=== PATIENT | male | born 1940 | race Caucasian/White ===

== ENCOUNTER 2022-09-29 08:43 | Outpatient (CLI) | payer MEDICARE, BC, SELFPAY ==
[2022-09-29 15:22] LABS: Glucose* 104 mg/dL (60-115)
== END 2022-09-29 08:44 | disposition home or self-care (01) ==
PROVIDERS: PCP Internal Medicine; Visit Provider Internal Medicine
DX: E78.5 Hyperlipidemia, unspecified (principal); R63.1 Polydipsia
CPT/HCPCS: 82947

== ENCOUNTER 2023-05-22 10:03 | Emergency (ER) | payer MEDICARE, BC, SELFPAY ==
[2023-05-22 10:11] VITALS: BP 150/105; PULSE 50; RESP 18; TEMP 35.6; O2SAT 99; BMI 26.6
[2023-05-22 10:27] VITALS: BP 186/92; PULSE 49; RESP 18; O2SAT 99
--- NOTE | 2023-05-22 11:01 | ED_ITS ---
HPI - Eye Problem General Chief complaint: Eye Problems Stated complaint: RT eye, bloody Time Seen by Provider: 05/22/23 10:48 History of Present Illness HPI Narrative: This 83-year-old male states that he sneezed yesterday and soon thereafter developed redness in the medial aspect of his right eye. He is taking blood pressure medicine and anticoagulants. He states that his INR was last checked at 2.5. He also generally takes a baby aspirin but did not take this medicine this morning. He noted his blood pressure had a systolic value of 190 yesterday so he recheck did over night and states that it is normalized at 130 today. He does not complain of any pain or visual changes. Related Data Home Medications Medication Instructions Recorded Confirmed aspirin 81 mg chewable tablet 81 mg PO QDAY 05/11/22 02/06/23 sildenafil 100 mg tablet 100 mg PO QDAY PRN 05/11/22 02/06/23 Previous Rx's Medication Instructions Recorded hydrochlorothiazide 12.5 mg capsule 12.5 mg PO QDAY #90 caps 02/06/23 metoprolol succinate 50 mg 50 mg PO QDAY #90 tabs 02/06/23 tablet,extended release 24 hr nitroglycerin 0.4 mg sublingual 0.4 mg sublingual Q5M PRN chest 02/06/23 tablet pain #30 tabs omeprazole 20 mg capsule,delayed 20 mg PO QDAY #90 caps 02/06/23 release simvastatin 10 mg tablet 10 mg PO .QOD #45 tabs 02/06/23 amiodarone 200 mg tablet 200 mg PO QDAY #90 tabs 02/07/23 ezetimibe 10 mg tablet 10 mg PO QDAY #90 tabs 02/07/23 warfarin 1 mg tablet 2 mg PO DAILY #180 tabs 04/27/23 valsartan 160 mg tablet 160 mg PO .QHS #90 tabs 05/01/23 Allergies Allergy/AdvReac Type Severity Reaction Status Date / Time atorvastatin Allergy Mild Muscle Pain Verified 02/06/23 07:43 rosuvastatin Allergy Mild myalgias Verified 02/06/23 07:43 Review of Systems Status of ROS: Reports: 10 or more systems reviewed and unremarkable except as noted in History and below Narrative: Constitutional: No fevers, no weight gain or loss. Eyes: No discharge. No vision changes. HENT: No congestion, no sore throat, no ear pain. Cardiovascular: No chest pain, no palpitations. Respiratory: No shortness of breath, no wheezes, no cough. Gastrointestinal: No abdominal pain, no vomiting, no diarrhea. Genitourinary: No dysuria, no hematuria. Musculoskeletal: Normal range of motion. Skin: No rashes, no pruritis. Neurological: No dizziness, weakness, sensory change, speech change. Endo/Heme/Allergies: No bruising or bleeding. No polydipsia. Pysch: no suicidality, no anxiety, no insomnia. All other systems reviewed and are negative. [facility] Medical History (Updated 05/22/23 @ 11:05 by Rodolfo Rodriguez MD) History of cardioversion ?Z92.89 - Personal history of other medical treatment (ICD-10) Surgical History (Updated 09/29/22 @ 11:57 by Marycruz Avilez MD) History of uvulopalatopharyngoplasty ?Z98.890 - Other specified postprocedural states (ICD-10) History of tonsillectomy ?Z90.89 - Acquired absence of other organs (ICD-10) History of mitral valve repair ?Z98.890 - Other specified postprocedural states (ICD-10) History of malignant neoplasm of skin ?Z85.828 - Personal history of other malignant neoplasm of skin (ICD-10) History of coronary artery bypass surgery ?Z95.1 - Presence of aortocoronary bypass graft (ICD-10) History of cataract removal with insertion of prosthetic lens ?Z98.49 - Cataract extraction status, unspecified eye (ICD-10) ?Z96.1 - Presence of intraocular lens (ICD-10) Family History (Updated 09/21/22 @ 14:08 by Pat Owusu ~ PSR) Other Heart disease Prostate cancer Stroke Social History (Updated 09/21/22 @ 14:08 by Pat Owusu ~ PSR) Narrative: Former smoker Occasional alcohol consumption Does not use illicit drugs Smoking Status: Never smoker Do you use any of these nicotine containing products: None How often do you have a drink containing alcohol: 2-3 times a week How many standard drinks containing alcohol do you have on a typical day: 1 or 2 How often do you have six or more drinks on one occasion: Never AUDIT-C Alcohol total score: 3 Non-prescribed substance use: denies use Little interest or pleasure in doing things: not at all Feeling down, depressed, or hopeless: not at all service: No Exam Narrative: Exam Narrative: Constitutional: Well-developed, well-nourished, no acute distress. HEENT: Normocephalic, atraumatic. The medial aspect of the right eye has a subconjunctival hematoma. Funduscopic exam is normal bilaterally without any evidence of blood. Neck: Normal range of motion. Nontender. Supple. Heart: Regular. No murmurs. Normal rate. Intact distal pulses. Lungs: Clear to auscultation. No chest discomfort. No wheezes, rhonchi, or rales. Abdomen: Normal bowel sounds. Nontender. No rebound tenderness. Genitalia: Deferred. Back: No midline tenderness. Normal range of motion. Extremities: Normal range of motion. No injury. Skin: Intact. No rash. Warm. No erythema or pallor. Neurologic: No altered sensation. No weakness. Alert and oriented. Psychiatric: No suicidality. No anxiety or depression. No insomnia. Nursing notes and vitals signs are reviewed. Const: Vital Signs, click to edit/add: Vital Signs - 24 hr 05/22/23 10:11 05/22/23 10:27 Temperature 96.1 F L Pulse Rate [Pulse Oximeter] 50 L 49 L Respiratory Rate 18 18 Blood Pressure [Le ft Upper Arm] 150/105 H 186/92 H Pulse Oximetry 99 99 Oxygen Delivery Me thod Room Air Room Air Course Vital Signs Vital signs: Initial Vital Signs Temperature 96.1 F L 05/22/23 10:11 Temperature Source Temporal Artery Scan 05/22/23 10:11 Pulse Rate 50 L 05/22/23 10:11 Pulse Rhythm Regular 05/22/23 10:11 Respiratory Rate 18 05/22/23 10:11 Blood Pressure 150/105 H 05/22/23 10:11 Blood Pressure Mean 120 H 05/22/23 10:11 Blood Pressure Position Sitting 05/22/23 10:11 Pulse Oximetry 99 05/22/23 10:11 Oxygen Delivery Method Room Air 05/22/23 10:11 Vital Signs Temperature 96.1 F L 05/22/23 10:11 Pulse Rate 50 L 05/22/23 10:11 Respiratory Rate 18 05/22/23 10:11 Blood Pressure 150/105 H 05/22/23 10:11 Pulse Oximetry 99 05/22/23 10:11 Oxygen Delivery Method Room Air 05/22/23 10:11 Temperature 96.1 F L 05/22/23 10:11 Pulse Rate 49 L 05/22/23 10:27 Respiratory Rate 18 05/22/23 10:27 Blood Pressure 186/92 H 05/22/23 10:27 Pulse Oximetry 99 05/22/23 10:27 Oxygen Delivery Method Room Air 05/22/23 10:27 MDM - Eye Problem MDM Narrative Medical decision making narrative: This patient comes in with concern about redness in his right eye. He is on anticoagulants and states that he had a quadruple bypass about a year ago. He is also on antihypertensive medications and has had some spikes in his blood pressure recently but also returns to normal. I reassured him regarding the subconjunctival hematoma in his right eye and stated that this will resolve spontaneously. His anticoagulant and blood pressure have likely contributed to this hematoma. He should continue his current medications. He has a follow-up appointment with his cloth doffer in the next few weeks. Discharge Plan Discharge Clinical Impression: Subconjunctival hematoma Condition: Stable Additional Instructions: Continue current plans. Follow up with MD as scheduled. Return if worsening. Prescriptions: No Action simvastatin 10 mg tablet 10 mg PO .QOD Qty: 45 3RF Rx Instructions: Every other day omeprazole 20 mg capsule,delayed release(DR/EC) 20 mg PO QDAY Qty: 90 3RF metoprolol succinate 50 mg tablet extended release 24 hr 50 mg PO QDAY Qty: 90 3RF hydrochlorothiazide 12.5 mg capsule 12.5 mg PO QDAY Qty: 90 3RF nitroglycerin 0.4 mg tablet, sublingual 0.4 mg sublingual Q5M PRN (Reason: chest pain) Qty: 30 5RF Rx Instructions: do not exceed 3 doses per episode sildenafil 100 mg tablet 100 mg PO QDAY PRN Rx Instructions: administer 30 minutes to 4 hours before activity aspirin 81 mg tablet,chewable 81 mg PO QDAY amiodarone 200 mg tablet 200 mg PO QDAY Qty: 90 1RF ezetimibe 10 mg tablet 10 mg PO QDAY Qty: 90 3RF warfarin 1 mg tablet 2 mg PO DAILY Qty: 180 0RF Protocol: Dose Management Condition: Monday Dose/Route: 2 mg Instruction: 2 x 1 mg tablets Condition: Monday Dose/Route: 2 mg Instruction: 2 x 1 mg tablets Condition: Monday Dose/Route: 2 mg Instruction: 2 x 1 mg tablets Condition: Monday Dose/Route: 1 mg Instruction: 1 x 1 mg tablet Condition: Dose/Route: 2 mg Instruction: 2 x 1 mg tablets Condition: Monday Dose/Route: 2 mg Instruction: 2 x 1 mg tablets Condition: Monday Dose/Route: 2 mg Instruction: 2 x 1 mg tablets Protocol Text: Adjustment Start Date: Monday05/10/23 INR Value: 2.8 INR Date: 05/10/23 Recheck Date: 05/24/23 valsartan 160 mg tablet 160 mg PO .QHS Qty: 90 0RF Follow Up/Referrals: Marycruz Avilez MD [Primary Care Provider] - Stand Alone Forms: MyHealth Info Instructions
--- OUTSIDE RECORDS SUMMARY | 2023-05-22 11:03 | XMS_ITS | Continuity of Care Document ---
Author Name Unknown Organization [facility] Address [address] [place] [address] [address] [place] [address] Phone Care Team Providers Care Lens Grinder And Polisher Name Role Phone Claudine FLORENCE, Kristina Unavailable Unavailable Procedures Procedure Date Office consultation, moderate 7 Advance Directives Directive Yes / No Effective Date File Name No Information Encounters Encounter Description Practice Location Reason(s) For Visit Diagnoses Date Provider Providers Copied on Encounter Office consultation, moderate [facility] [place], [facility] [address] [place] [address], [place], [address], [place] tel:[phone] [facility] No Information Claudine Acevedo. [facility] [place], [address], [place], [id number] , [place]. tel:[phone] Referring Provider: Kristina Chow, [facility] [place] [id number], [place], [address] . tel:[phone] Family History Family Member Type Diagnosis Age At Onset No Information Payers Payer name Insurance type Covered republican ID Authorrandya ticolleen(s) [place] [id number] Social History Type Description Quantity Date Captured Comments Sex Male Smoking Status No Information Chief Complaint And Reason For Visit No Information Reason For Referral Reason For Referral No Information History Of Present Illness Encounter Date Complaint History Of Prese nt Illness No Information Functional Status Date Functional Assessmen t No Information Instructions Date Instruction Additional Infor mation No Information Assessments Type Assessment Date No Information Patient Care Teams Name Effective Dates (start - stop) Status Members No Information
== END 2023-05-22 12:23 | disposition home or self-care (01) ==
PROVIDERS: Emergency Provider Emergency Medicine Emergency Medical Services; PCP Internal Medicine
DX: H57.89 Other specified disorders of eye and adnexa (principal)
CPT/HCPCS: 99282; 99283; 99284

== ENCOUNTER 2023-06-27 10:55 | Outpatient (CLI) | payer MEDICARE, BC, SELFPAY ==
--- OUTSIDE RECORDS SUMMARY | 2023-06-27 10:57 | XMS_ITS | Continuity of Care Document ---
Author Name Unknown Organization [facility] Address [address] [place] [address] [address] [place] [address] Phone Care Team Providers Care Furniture Upholsterer Apprentice Name Role Phone Claudine FLORENCE, Kristina Unavailable Unavailable Procedures Procedure Date Office consultation, moderate 7 Advance Directives Directive Yes / No Effective Date File Name No Information Encounters Encounter Description Practice Location Reason(s) For Visit Diagnoses Date Provider Providers Copied on Encounter Office consultation, moderate Z [facility] [place], [facility] [address] [place] [address], [place], [address], [place] tel:[phone] [facility] No Information Claudine Acevedo. [facility] [place], [address], [place], [id number] , [place]. tel:[phone] Referring Provider: Kristina Chow, [facility] [place] [address], [address] . tel:[phone] Family History Family Member Type Diagnosis Age At Onset No Information Payers Payer name Insurance type Covered republican ID Authorrandya ticolleen(s) [place] [facility] [id number] Social History Type Description Quantity Date Captured [...]
== END 2023-06-27 10:56 | disposition home or self-care (01) ==
LOC: NFLDREF 10:56
PROVIDERS: PCP Internal Medicine; Visit Provider Internal Medicine
DX: I10 Essential (primary) hypertension (principal)
CPT/HCPCS: 80048

== ENCOUNTER 2024-02-09 10:42 | Outpatient (CLI) | payer MEDICARE, BC, SELFPAY ==
--- OUTSIDE RECORDS SUMMARY | 2024-02-29 07:42 | XMS_ITS | Referral Summary ---
Author Organization [place] Address [address] [place] [address] Care Team Providers Care Stretcher Leveler Operator Helper Name Role Phone No Ref-Primary, Physician Primary Care Provider Allergies No known active allergies Social History Tobacco Use Types Packs/Day Years Used Date Smoking Tobacco: Never Assessed Adolescent Education Answer Date Record ed Getting School Help Needed Not on file 06/24 Sex and Gender Information Value Date Recorded Sex Assigned at Not on file Gender Identity Not on file Sexual Orientation Not on file Last Filed Vital Signs Vital Sign Reading Time Taken Comments Blood Pressure 159/78 03/03/2023 2:11 AM CDT Pulse 50 03/03/2023 2:11 AM CDT Temperature 36.6 ??C (97.8 ??F) 03/02/2023 9:50 PM CD T Respiratory Rate 18 03/03/2023 2:11 AM CDT Oxygen Saturation 97% 03/03/2023 2:11 AM CDT Inhaled Oxygen Concentration - - Weight - - Height - - Body Mass Index - - Plan of Treatment Not on file Care Teams Stretcher Leveler Operator Helper Relationship Specialty Start Date End Date No Ref-Primary, Physician PCP - General 11/21/21
--- OUTSIDE RECORDS SUMMARY | 2024-02-29 07:42 | XMS_ITS | Clinical Summary ---
Author Organization [facility] Address [address] [place] [address] Care Team Providers Care Court Stenographer Name Role Phone No Ref-Primary, Physician Primary [...] Mass Index - - Plan of Treatment Health Maintenance Due Date Last Done Comments ADVANCE CARE PLANNING 1941 ANNUAL REVIEW OF HM ORDERS 1941 RSV VACCINE ( & 60+) (1 - 1-dose 60+ series) 2001 FALL RISK ASSESSMENT 2006 MEDICARE ANNUAL WELLNESS VISIT 2006 COVID-19 Vaccine ( season) 2023 06/29/2021, 11/18/2020, 11/15/2020, Additional history exists PHQ-2 (once per calendar year) 2023 INFLUENZA VACCINE (Season Ended) 2024 07/07/2021, 07/21/2020, 06/28/2019, Additional history exists DTAP/TDAP/TD IMMUNIZATION (2 - Td or Tdap) 03/20/2025 03/20/2015 Pneumococcal Vaccine: 65+ Years Completed 05/22/2017, 07/25/2014 ZOSTER IMMUNIZATION Completed 09/12/2019, 07/03/2019, 06/28/2019 HPV IMMUNIZATION Aged Out No longer e ligible based on patient's age to complete this topic IPV IMMUNIZATION Aged Out No longer e ligible based on patient's age to complete this topic MENINGITIS IMMUNIZATION Aged Out No l onger eligible based on patient's age to complete this topic RSV MONOCLONAL ANTIBODY Aged Out No l onger eligible based on patient's age to complete this topic Care Teams Court Stenographer Relationship Specialty Start Date End Date No Ref-Primary, Physician PCP - General 11/21/21
--- OUTSIDE RECORDS SUMMARY | 2024-02-29 07:42 | XMS_ITS | Clinical Summary ---
Author Organization [employer] [facility] Address [place], [place] [address] Care Team Providers Care Montessori Teacher Name Role Phone Marycruz Avilez MD Primary Care Provider [phone] Allergies No known active allergies Medications Medication Sig Dispensed Refills Start Date End Date Status OMEPRAZOLE 20 MG CAP, DELAYED RELEASE Take 20 mg by mouth once daily before a meal. DO NOT CRUSH OR CHEW 10/18/2021 Active multivitamin (MVI) tablet Take 1 tablet by mouth once daily. 0 05/13/2016 Active Vit C-Vit J-Fffilu-Itb-OM-3 (OCUVITE) 302-07-0-150 pj-odyu-ci-mg capsule Take by mouth. 0 05/13/2016 Active sodium chloride (ADSORBONAC) 5 % ophthalmic solution Place 1 Drop into both eyes 2 times daily. Active ezetimibe (ZETIA) 10 mg tabletIndications:Hy perlipidemia, unspecified hyperlipidemia type Take 1 Tablet (10 mg) by mouth once daily. 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 20 Tablet 3 09/13/2021 Active simvastatin (ZOCOR) 10 mg tablet Take 10 mg by mouth. Takes every other day 0 09/16/2021 Active valsartan (DIOVAN) 160 mg tablet Take 160 mg by mouth once daily. 01/27/2022 Active warfarin (COUMADIN) 2 mg tabletIndications:S/ P CABG x 4,S/P mitral valve repair,S/P Maze operation for atrial fibrillation,S/P left atrial appendage ligation 3mg once daily with repeat INR on Monday02/18/2022 60 Tablet 3 02/14/2022 Active Additional Information Patient taking differently: Oral DAILY WARFARIN, 2 once daily except on wednesdays take 1 mg with repeat INR on Monday02/18/2022, Informant: Patient's Recall, Reported on 09/11/2023 amiodarone (CORDARONE) 200 mg tablet Take 1 Tablet (200 mg) by mouth once daily. 0 Active metoprolol succinate (Toprol XL) 25 mg Sustained-Release tabletIndications:Pe rsistent atrial fibrillation (HC),Tricuspid valve insufficiency, unspecified etiology Take 1 Tablet (25 mg) by mouth once daily. 90 Tablet 3 03/31/2023 Active hydroCHLOROthiazide (HCTZ) 25 mg tabletIndications:Pe rsistent atrial fibrillation (HC),Tricuspid valve insufficiency, unspecified etiology,Hypertensio n Take 0.5 Tablets (12.5 mg) by mouth once daily. 45 Tablet 06/22/2023 Active aspirin (ECOTRIN) 81 mg enteric coated tabletIndications:Ar teriosclerotic heart disease Take 1 Tablet (81 mg) by mouth once daily with a meal. Please hold for 5 days after your pacemaker placement. Ok to resume taking on 09/16/2023. 09/11/2023 Active oxyCODONE-acetaminop hen (PERCOCET) 5-325 mg per tabletIndications:S/ P placement of cardiac pacemaker Take 1 Tablet by mouth every 6 hours if needed for Pain. Max acetaminophen dose: 4000mg in 24 hrs. 5 Tablet 09/11/2023 Active cloNIDine HCL (CATAPRES) 0.1 mg tabletIndications:Hy pertension Take 1 Tablet (0.1 mg) by mouth one time if needed for SBP > (Specify) (For systolic blood pressure > 160) for up to 30 doses. 30 Tablet 09/11/2023 Active Active Problems Problem Noted Date Diagnosed Date Tricuspid valve insufficiency 02/08/2022 COVID-19 02/08/2022 CKD (chronic kidney disease) stage 3, GFR 30-59 ml/min 10/13/2021 S/P CABG x 4 10/08/2021 S/P mitral valve repair 10/08/2021 Overview: [employer] [facility] Rigid Saddle Ring size 34 mm, REF: [id number], SN: [id number], EXP: 08-01-2026 implanted in the mitral annulus by Dr. 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 Mitral valve insufficiency and aortic valve sten osis 03/06/2007 Resolved Problems Problem Noted Date Diagnosed Date Resolved Date Cardiovascular symptoms 08/26 Encounters Date Type Department Care Team Description 01/17/2024 Travel 12/20/2023 Telephone JumpChat [facility] [address] [facility] [address] [place] [address] Cardiology, Anw Follow Up from Last 3 Months Immunizations Name Administration Dates Next Due COVID-19 vaccine (Mirabilis MedicaNTGetQuik 30mcg/0.3mL) P F, MDV 11/18/2020,10/28/2020 Pneumococcal conj 13-Valent (Prevnar 13) 014 Tdap 03/20/2015 Family History Medical History Relation Name Comments Stroke Father Heart attack Sister Relation Name Status Comments Father Sister Social History Tobacco Use Types Packs/Day Years Used Date Smoking Tobacco: Former Cigarettes Q uit: 09/25/1993 Smokeless Tobacco: Never Comments:was a social smoker Alcohol Use Standard Drinks/Week Comments Yes 7 (1 standard drink = 0.6 oz pur e alcohol) 1 glass/day Social Connections Answer Date Recorded Frequency of Communication with Friends and Fami ly Not on file 09/15/2021 Financial Resource Strain Answer Date R ecorded Difficulty of Paying Living Expenses Not on file 09/15/2021 Difficulty of Paying Living Expenses Not on file 09/15/2021 Sex and Gender Information Value Date Recorded Sex Assigned at Not on file Gender Identity Not on file Sexual Orientation Not on file Obstetrics History Last Filed Vital Signs Vital Sign Reading Time Taken Comments Blood Pressure 170/90 09/11/2023 3:15 PM DATA STORAGE SPECIALIST Pulse 59 09/11/2023 3:15 PM DATA STORAGE SPECIALIST Temperature 35.9 ??C (96.7 ??F) 09/11/2023 1:41 PM CS T Respiratory Rate 16 09/11/2023 3:15 PM DATA STORAGE SPECIALIST Oxygen Saturation 98% 09/11/2023 3:15 PM DATA STORAGE SPECIALIST Inhaled Oxygen Concentration - - Weight 76 kg (167 lb 8 oz) 09/11/2023 9:47 AM CS T Height 170.2 cm (5' 7) 09/11/2023 9:47 AM DATA STORAGE SPECIALIST Body Mass Index 26.23 09/11/2023 9:47 AM DATA STORAGE SPECIALIST Plan of Treatment Upcoming Encounters Date Type Department Care Team (Late st Contact Info) Description 05/07/2024 Cardiac Device Check Arecont [facility] [phone] Health Maintenance Due Date Last Done Comments Zoster (shingles) series for age 50+ (1 of 2) 1991 Pneumococcal series for age 65+ (2 of 2 - PPSV23 or PCV20) 09/19/2014 07/25/2014 Depression screening for age 12+ 05/13/2017 05/13/20 16 Medicare Wellness for age 65+ 05/14/2017 05/13/2016 COVID-19 vaccine series ( season) 2023 06/29/2021, 11/18/2020, 10/28/2020 Influenza for age 65+ 05/26/2024 BMI (ht and wt on same day) for age 18+ 07/13/2024 07/13/2023, 03/31/2023, 05/05/2022, Additional history exists Tetanus booster 03/20/2025 03/20/2015 Tdap Completed 03/20/2015 Medical Devices Implanted Type Area Card Clothier Device Identifier Shelf Expiration Date Model / Serial / Lot Ring Mitral 34mm Rigid Saddle - [id number] Implanted:Qty: 1 on 10/08/2021 by Sushant Mcgowan MD at [facility] N/A: Mitral Valve [id number] / Advance Directives * Full Code (Latest Code Status on File) Date Activated Date Inactivated Comments 09/11/2023 1:28 PM 09/11/2023 6:19 PM Question Answer Comments Code Status Discussion: Reviewed Preferences * Full Code Date Activated Date Inactivated Comments 02/14/2022 12:04 PM 02/14/2022 3:07 PM Question Answer Comments Code Status Discussion: Reviewed Preferences * Full Code Date Activated Date Inactivated Comments 10/10/2021 9:14 AM 10/16/2021 2:26 PM Question Answer Comments Code Status Discussion: Reviewed Preferences * Full Code Date Activated Date Inactivated Comments 10/08/2021 6:25 AM 10/10/2021 9:14 AM Question Answer Comments Code Status Discussion: Unable to Assess Preferences, Provider to review later * Full Code Date Activated Date Inactivated Comments 09/13/2021 3:01 PM 09/13/2021 9:40 PM Question Answer Comments Code Status Discussion: Reviewed Preferences Care Teams Montessori Teacher Relationship Specialty Start Date End Date Marycruz Avilez MD [address] [place], [place] [id number] PCP - General Internal Medicine 11/18/21
== END 2024-02-09 10:43 | disposition home or self-care (01) ==
LOC: NFLDREF 02-29 07:40
PROVIDERS: PCP Internal Medicine; Referring Provider Internal Medicine; Visit Provider Internal Medicine
DX: I48.0 Paroxysmal atrial fibrillation (principal); R73.03 Prediabetes; D64.9 Anemia, unspecified; E78.5 Hyperlipidemia, unspecified; I10 Essential (primary) hypertension
CPT/HCPCS: 80048; 80061

== ENCOUNTER 2024-05-24 10:19 | Outpatient (CLI) | payer MEDICARE, BC, SELFPAY ==
--- OUTSIDE RECORDS SUMMARY | 2024-05-24 10:23 | XMS_ITS | Referral Summary ---
Author Organization [facility] Address [address] [place] [address] Care Team Providers Care Project Construction Assistant Manager Name Role Phone No Ref-Primary, Physician Primary [...] of Treatment Not on file Care Teams Project Construction Assistant Manager Relationship Specialty Start Date End Date No Ref-Primary, Physician PCP - General 11/21/21
--- OUTSIDE RECORDS SUMMARY | 2024-05-24 10:23 | XMS_ITS | Clinical Summary ---
Author Organization [facility] Address [address] [place] [address] Care Team Providers Care Agricultural Research Director Name Role Phone No Ref-Primary, Physician Primary [...] REVIEW OF HM ORDERS 1941 RSV VACCINE (1 - 1-dose 60+ series) 2001 FALL RISK ASSESSMENT 2006 MEDICARE ANNUAL WELLNESS VISIT 2006 COVID-19 Vaccine ( season) 2023 06/29/2021, 11/18/2020, 11/15/2020, Additional history exists PHQ-2 (once per calendar year) 2023 INFLUENZA VACCINE (#1) 2024 , 07/21/2020, 06/28/2019, Additional history exists DTAP/TDAP/TD IMMUNIZATION [...] age to complete this topic Care Teams Agricultural Research Director Relationship Specialty Start Date End Date No Ref-Primary, Physician PCP - General 11/21/21
--- OUTSIDE RECORDS SUMMARY | 2024-05-24 10:23 | XMS_ITS | Clinical Summary ---
Author Organization [facility] Address [place], [place] [address] Care Team Providers Care Senior Microsoft Consultant Name Role Phone Marycruz Avilez MD Primary Care Provider [phone] Allergies No known active allergies Medications Medication Sig Dispensed Refills Start Date End Date Status multivitamin (MVI) tablet Take 1 tablet by mouth once daily. 0 05/13/2016 Active sodium chloride (ADSORBONAC) 5 % ophthalmic solution Place 1 Drop into both eyes 2 times daily. Active ezetimibe (ZETIA) 10 mg tabletIndications:Hyp erlipidemia, unspecified hyperlipidemia type Take 1 Tablet (10 mg) by mouth once daily. 0 09/03/2021 Active nitroglycerin (NITROSTAT) 0.4 mg sublingual tabletIndications:CAD in [place] artery Place 1 Tablet (0.4 mg) under the tongue every 5 minutes if needed for Chest Pain. 20 Tablet 3 09/13/2021 Active simvastatin (ZOCOR) 10 mg tablet Take 10 mg by mouth. Takes every other day 0 09/16/2021 Active warfarin (COUMADIN) 2 mg tabletIndications:S/P CABG x 4,S/P mitral valve repair,S/P Maze operation for atrial fibrillation,S/P left atrial appendage ligation 3mg once daily with repeat INR on Monday02/18/2022 60 Tablet 3 02/14/2022 Active Additional Information Patient taking differently: Oral DAILY WARFARIN, 2 once daily except on wednesdays take 1 mg with repeat INR on Monday02/18/2022, Informant: Patient's Recall, Reported on 09/11/2023 aspirin (ECOTRIN) 81 mg enteric coated tabletIndications:Art eriosclerotic heart disease Take 1 Tablet (81 mg) by mouth once daily with a meal. Please hold for 5 days after your pacemaker placement. Ok to resume taking on 09/16/2023. 09/11/2023 Active cloNIDine HCL (CATAPRES) 0.1 mg tabletIndications:Hyp ertension Take 1 Tablet (0.1 mg) by mouth one time if needed for SBP > (Specify) (For systolic blood pressure > 160) for up to 30 doses. 30 Tablet 09/11/2023 Active hydroCHLOROthiazide 25 mg tabletIndications:Per sistent atrial fibrillation (HC),Tricuspid valve insufficiency, unspecified etiology,Hypertension Take 1 Tablet (25 mg) by mouth once daily. 03/20/2024 Active metoprolol succinate (Toprol XL) 25 mg Sustained-Release tabletIndications:Per sistent atrial fibrillation (HC),Tricuspid valve insufficiency, unspecified etiology Take 0.5 Tablets (12.5 mg) by mouth once daily. 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 Rigid Saddle Ring size 34 mm, REF: RSAR-34, SN: [id number], EXP: 08-01-2026 implanted in the mitral annulus [...] Encounters Date Type Department Care Team Description 05/01/2024 Telephone [facility] [address] [facility] [address] [place] [phone] Scott Sahu MD Questions 04/29/2024 Telephone [place] [id number] [place] [address] Tanesha Evans NP Results 04/26/2024 9:00 AM CDT Ancillary Procedure [address] [place] [address] 04/26/2024 Travel 03/20/2024 8:00 AM CDT Office Visit [place] [address] [place] [address] Tanesha Evans NP Follow Up (F/u Visit/Concerns for possible valve infection/PT states feeling ok./Discuss pacemaker irregular beats./Unable to verify some meds) 03/20/2024 Travel 03/19/2024 Telephone [facility] [address] [facility] [address] [place] [phone] Amilcar Hawkins MD Concerns 03/18/2024 Telephone [facility] [address] [phone] Iraj Lopez RN 03/18/2024 Telephone [facility] [address] [place] [address] [place] [phone] Bernadette Ford I, RN Device Check from Last 3 Months Immunizations Name Administration Dates Next Due COVID-19 vaccine (Bucky Box 30mcg/0.3mL) PAWEL Cardenas 11/18/2020,10/28/2020 Pneumococcal conj 13-Valent (Prevnar 13) 014 Tdap 03/20/2015 Family History Medical History Relation Name Comments Stroke Father Heart attack Sister Relation Name Status Comments Father Sister Social History Tobacco Use Types Packs/Day Years Used Date Smoking Tobacco: Former Cigarettes Q uit: 09/25/1993 Smokeless Tobacco: Never Tobacco Cessation:Counseling Given: Not Answered Comments:was a social smoker Alcohol Use Standard Drinks/Week Comments Yes 7 (1 standard drink = 0.6 oz pur e alcohol) 1 glass/day or less Social Connections Answer Date Recorded Frequency of [...] Sign Reading Time Taken Comments Blood Pressure 136/86 03/20/2024 8:17 AM CDT Pulse 62 03/20/2024 8:17 AM CDT Temperature 35.9 ??C (96.7 ??F) 09/11/2023 1:41 PM CS T Respiratory Rate 16 09/11/2023 3:15 PM HOT METAL CHARGER Oxygen Saturation 97% 03/20/2024 8:17 AM CDT Inhaled Oxygen Concentration - - Weight 77.7 kg (171 lb 3.2 oz) 03/20/2024 8:17 A M CDT Height 170.2 cm (5' 7) 03/20/2024 8:17 AM CDT Body Mass Index 26.81 03/20/2024 8:17 AM CDT Plan of Treatment Upcoming Encounters Date Type Department Care Team (Latest Contact Info) Description 06/19/2024 10:30 AM CDT Appointment [facility] [address] [place], [place] [id number] 09/06/2024 Cardiac Device Check [facility] [phone] Health Maintenance Due Date Last Done Comments [...] wt on same day) for age 18+ 03/20/2025 03/20/2024, 07/13/2023, 03/31/2023, Additional history exists Tetanus booster 03/20/2025 03/20/2015 Tdap Completed 03/20/2015 Medical Devices Implanted Type Area Explosives Worker Device Identifier Shelf Expiration Date Model / Serial / Lot Ring Mitral 34mm Rigid Saddle - [id number] Implanted:Qty: 1 on 10/08/2021 by Sushant Mcgowan MD at [facility] N/A: Mitral Valve [facility] [facility] 08/01/2026 RSAR-34 / [id number] / Procedures Procedure Name Priority Date/Time Associated Diagnosis Comments ECHO TTE COMPLETE WO CONTRAST Routine 04/26/2024 9:46 AM CDT Mitral valve insufficiency and aortic valve stenosis from Last 3 Months Results * ECHO TTE COMPLETE WO CONTRAST (04/26/2024 9:46 AM CDT) AORTIC VALVE MEAN PG 2 mmHg PEAK TR VELOCITY 3.0 m/s LVEDD 4.0 cm MITRAL VALVE MR ERO 26 mm2 EJECTION FRACTION 55 - 60% Anatomical Region Laterality Modality Ultrasound 04/26/2024 9:03 AM CDT Narrative 04/26/2024 10:34 AM CDT ECHOCARDIOGRAM TRINIDAD VICTORIA ?Accession#: ?? [id number] : ?1940 84 years Study Date: ?? 04/26/2024 9:03:45 AM Gender: M ? BP: ? 136/86 mmHg Height: 170.18 cm ? BSA: ?1.89 m? ? ? Weight: 77.57 kg ?Tech: ? JCP ?Referring MD: TANESHA EVANS Site: ? [facility] Reading Location: MOBILE - OP Patient Location: Procedure: 2D, Color Doppler and Spectral Doppler. Indication for study: MR, Cardiac Rhythm: Ventricular paced and with premature ventricular contractions.Study quality: Excellent. Final Impressions: 1. Normal LV size, mildly increased wall thickness, normal global systolic function with an estimated EF of 55 - 60%. 2. Right ventricular cavity size is normal, global systolic RV function is mildly reduced. 3. Severely enlarged left atrium. 4. The aortic valve is normal and trileaflet, no stenosis and no regurgitation. 5. The mitral valve is Status post 34-mm [employer] Rigid Saddle Ring mitral valve repair (10/08/2021)., moderate mitral regurgitation. 6. The transmitral peak and mean gradients are 6 and 3 mmHg respectively (heart rate 77bpm). 7. Tricuspid valve is S/P RV lead seen across the tricuspid valve. 8. Moderate tricuspid regurgitation. 9. Mildly increased estimated pulmonary pressures by tricuspid regurgitation velocity and right atrial pressure (37 mmHg plus RAP). 10. No pericardial effusion. Chamber Sizes and Function Normal left ventricular size, mildly increased wall thickness, normal global systolic function with an estimated EF of 55 - 60%. Left atrial size is severely enlarged. Right ventricular cavity size is normal, global systolic RV function is mildly reduced. The right atrium is normal. The pulmonary artery is of normal size and origin. The sinus of Valsalva is normal sized. The ascending aorta is normal sized. Valves, RV Pressures and Diastolic Function The aortic valve is normal in structure and trileaflet, no stenosis and no regurgitation. The mitral valve is Status post 34-mm [employer] Rigid Saddle Ring mitral valve repair (10/08/2021)., moderate mitral regurgitation. (PISA ERO 26 mm? ? ? and RV of 49 ml). Indeterminate pattern of LV diastolic filling. The transmitral peak and mean gradients are 6 and 3 mmHg respectively (heart rate 77bpm). The tricuspid valve is S/P RV lead seen across the tricuspid valve. Tricuspid regurgitation is moderate. The tricuspid regurgitant velocity is 3.0 m/s, the estimated right ventricular systolic pressure is 37 mmHg plus right atrial pressure. There is mildly increased estimated pulmonary pressure by tricuspid regurgitation velocity and right atrial pressure. The pulmonic valve is normal. Trace pulmonary regurgitation. Masses, Effusion, Shunts There is no pericardial effusion. The inferior vena cava is not well visualized, respiratory size variation not well visualized. No left to right shunting was detected by limited color flow Doppler interrogation of the interatrial septum. MEASUREMENTS AND CALCULATIONS 2-D Measurements and LV Function: LVID (d) 4.0 cm LV FS% (2D) ?? 35 % LVID (s) 2.6 cm LVOT diameter 2.4 cm IVS (d) ??1.3 cm HR ?84 bpm LVPW (d) 0.9 cm LA Vol index ??50 ml/m2 Ao Sinus 3.4 cm GLS current ?? -15% Asc Ao ?? 3.5 cm Diastology: Mitral ?Tissue Doppler E Peak 1.2 m/s ??e', Septum ? 0.06 m/s DT ? 187 msec e', Lateral ?0.09 m/s ?E/e' Average ?? 15.91 Aortic Valve: Vmax ? 0.9 m/s ??MACKENZIE (V) ?? 2.66 cm? ? ? VTI ?0.21 m ?? MACKENZIE (I) ?? 2.48 cm? ? ? LVOT V max 0.5 m/s ??Max PG ?3 mmHg LVOT VTI ?? 0.12 m ?? Mean PG ?? 2 mmHg SV ? 53 ml ?Dim Index 0.55 SV index ?? 28 ml/m? ? ? CO ?4.4 l/min ?CI ?2.3 l/min/m? ? ? Mitral Valve: MVA ? 4.1 cm? ? ? MR ERO ??0.26 cm? ? ? MV P 1/2 ??54 msec MR Vol. 49 ml MV Mean G 3 mmHg ??MR TVI ??1.88 m Tricuspid Valve and estimated PA pressures: TR Vmax 3.0 m/s TAPSE 1.4 cm TR maxG 37 mmHg . This study was interpreted by an [facility] accredited facility. ??Final ?? Procedure Note Ashwini Winslow, [facility] - 04/26/2024 ECHOCARDIOGRAM TRINIDAD VICTORIA : 1940 84 years Study Date: 04/26/2024 9:03:45 AM Gender: M BP: 136/86 mmHg Height: 170.18 cm BSA: 1.89 m? ? ? Weight: 77.57 kg Tech: ALEXIS Referring MD: TANESHA EVANS Site: [facility] Reading Location: MOBILE - OP Patient Location: Procedure: 2D, Color Doppler and Spectral Doppler. Indication for study: MR, Cardiac Rhythm: Ventricular paced and with premature ventricularcontractions.Study quality: Excellent. Final Impressions: 1. Normal LV size, mildly increased wall thickness, normal globalsystolic function with an estimated EF of 55 - 60%. 2. Right ventricular cavity size is normal, global systolic RV functionis mildly reduced. 3. Severely enlarged left atrium. 4. The aortic valve is normal and trileaflet, no stenosis and noregurgitation. 5. The mitral valve is Status post 34-mm [employer] Rigid Saddle Ringmitral valve repair (10/08/2021)., moderate mitral regurgitation. 6. The transmitral peak and mean gradients are 6 and 3 mmHg respectively(heart rate 77bpm). 7. Tricuspid valve is S/P RV lead seen across the tricuspid valve. 8. Moderate tricuspid regurgitation. 9. Mildly increased estimated pulmonary pressures by tricuspidregurgitation velocity and right atrial pressure (37 mmHg plus RAP). 10. No pericardial effusion. Chamber Sizes and Function Normal left ventricular size, mildly increased wall thickness, normalglobal systolic function with an estimated EF of 55 - 60%. Left atrialsize is severely enlarged. Right ventricular cavity size is normal, globalsystolic RV function is mildly reduced. The right atrium is normal. Thepulmonary artery is of normal size and origin. The sinus of Valsalva isnormal sized. The ascending aorta is normal sized. Valves, RV Pressures and Diastolic Function The aortic valve is normal in structure and trileaflet, no stenosis and noregurgitation. The mitral valve is Status post 34-mm [employer] Rigid SaddleRing mitral valve repair (10/08/2021)., moderate mitral regurgitation.(PISA ERO 26 mm? ? ? and RV of 49 ml). Indeterminate pattern of LV diastolicfilling. The transmitral peak and mean gradients are 6 and 3 mmHgrespectively (heart rate 77bpm). The tricuspid valve is S/P RV lead seenacross the tricuspid valve. Tricuspid regurgitation is moderate. Thetricuspid regurgitant velocity is 3.0 m/s, the estimated right ventricularsystolic pressure is 37 mmHg plus right atrial pressure. There is mildlyincreased estimated pulmonary pressure by tricuspid regurgitation velocityand right atrial pressure. The pulmonic valve is normal. Trace pulmonaryregurgitation. Masses, Effusion, Shunts There is no pericardial effusion. The inferior vena cava is not wellvisualized, respiratory size variation not well visualized. No left toright shunting was detected by limited color flow Doppler interrogation ofthe interatrial septum. MEASUREMENTS AND CALCULATIONS 2-D Measurements and LV Function: LVID (d) 4.0 cm LV FS% (2D) 35 % LVID (s) 2.6 cm LVOT diameter 2.4 cm IVS (d) 1.3 cm HR 84 bpm LVPW (d) 0.9 cm LA Vol index 50 ml/m2 Ao Sinus 3.4 cm GLS current -15% Asc Ao 3.5 cm Diastology: Mitral Tissue Doppler E Peak 1.2 m/s e', Septum 0.06 m/s DT 187 msec e', Lateral 0.09 m/s E/e' Average 15.91 Aortic Valve: Vmax 0.9 m/s MACKENZIE (V) 2.66 cm? ? ? VTI 0.21 m MACKENZIE (I) 2.48 cm? ? ? LVOT V max 0.5 m/s Max PG 3 mmHg LVOT VTI 0.12 m Mean PG 2 mmHg SV 53 ml Dim Index 0.55 SV index 28 ml/m? ? ? CO 4.4 l/min CI 2.3 l/min/m? ? ? Mitral Valve: MVA 4.1 cm? ? ? MR ERO 0.26 cm? ? ? MV P 1/2 54 msec MR Vol. 49 ml MV Mean G 3 mmHg MR TVI 1.88 m Tricuspid Valve and estimated PA pressures: TR Vmax 3.0 m/s TAPSE 1.4 cm TR maxG 37 mmHg . This study was interpreted by an [facility] accredited facility. Final Tanesha Evans TURBINE TECHNICIAN ECHO ORD from Last 3 Months Advance Directives * Full Code (Latest Code [...] Code Status Discussion: Reviewed Preferences Care Teams Senior Microsoft Consultant Relationship Specialty Start Date End Date Marycruz Avilez MD [address] [place] [phone] PCP - General Internal Medicine 11/18/21
== END 2024-05-24 10:20 | disposition home or self-care (01) ==
PROVIDERS: PCP Internal Medicine; Visit Provider Family Medicine
DX: K04.7 Periapical abscess without sinus (principal); I10 Essential (primary) hypertension; R73.03 Prediabetes; Z98.890 Other specified postprocedural states
CPT/HCPCS: 86140

== ENCOUNTER 2024-07-08 16:58 | Emergency (ER) | payer MEDICARE, BC, SELFPAY ==
[2024-07-08 17:14] VITALS: BP 144/91; PULSE 80; RESP 18; TEMP 36.6; O2SAT 97; BMI 26.2
[2024-07-08 18:19] LABS: Basophils Absolute Auto 0.04 K/uL (0.00-0.30); Basophils Percent Auto 0.6 % (0.0-3.0); Eosinophils Absolute Auto 0.15 K/uL (0.00-0.50); Eosinophils Percent Auto 2.2 % (0.0-7.0); Hematocrit 48.8 % (37.0-53.0); Hemoglobin* 16.1 gm/dL (13.5-17.5); Immature Granulocytes Abs Auto 0.01 K/uL (0.00-0.30); Immature Granulocytes Pct Auto 0.1 %; Lymphocytes Absolute Auto 2.52 K/uL (0.90-2.90); Lymphocytes Percent Auto 37.2 % (20-44); Mean Corpuscular HGB Conc 33 gm/dL (32-36); Mean Corpuscular Hemoglobin 31 pg (26-34); Mean Corpuscular Volume 93 fL (80-100); Monocytes Percent Auto 12.7 % (0.0-11.0); Neutrophils Absolute Auto 3.19 K/uL (1.7-7.0); Neutrophils Percent Auto 47.2 % (42.0-72.0); Platelet Count* 224 K/uL (140-440); RDW Coefficient of Variation % 12.8 % (11.5-15.5); Red Blood Count 5.27 m/uL (4.30-5.90); White Blood Count* 6.77 K/uL (4.50-11.00)
--- OUTSIDE RECORDS SUMMARY | 2024-07-08 18:19 | XMS_ITS | Clinical Summary ---
Author Organization [facility] Address [address] [place] [address] Care Team Providers Care Floor Grinder Name Role Phone No Ref-Primary, Physician Primary [...] 1940 ANNUAL REVIEW OF HM ORDERS 1940 FALL RISK ASSESSMENT 2006 MEDICARE ANNUAL WELLNESS VISIT 2006 RSV VACCINE (1 - 1-dose 75+ series) 01/29/2016 PHQ-2 (once per calendar year) 2023 BMP 03/02/2024 03/02/2023 COVID-19 Vaccine ( season) 2024 06/29/2021, 11/18/2020, 11/15/2020, Additional history exists INFLUENZA VACCINE (#1) 2024 , 07/21/2020, 06/28/2019, [...] on patient's age to complete this topic Procedures Procedure Name Priority Date/Time Associated Diagnosis Comments BASIC METABOLIC PANEL STAT 03/02/2023 11:04 PM CDT from Last 3 Months or Most Recently Relevant to Health Maintenance Results * (ABNORMAL) Basic metabolic panel (BMP) (03/02/2023 11:04 PM CDT) Sodium 137 136 - 145 mmol/L 03/02/2023 11:36 PM CDT [facility] Potassium 4.2 3.4 - 5.3 mmol/L 03/02/2023 11:36 PM CDT [facility] Chloride 99 98 - 107 mmol/L 03/02/2023 11:36 PM CDT [facility] Carbon Dioxide (CO2) 28 22 - 29 mmol/L 03/02/2023 11:36 PM CDT [facility] Anion Gap 10 7 - 15 mmol/L 03/02/2023 11:36 PM CDT [facility] Urea Nitrogen 23.0 8.0 - 23.0 mg/dL 03/02/2023 11:36 PM CDT [facility] Creatinine 1.70(H) 0.67 - 1.17 mg/dL 03/02/2023 11:36 PM CDT [facility] Calcium 8.8 8.8 - 10.2 mg/dL 03/02/2023 11:36 PM CDT [facility] Glucose 93 70 - 99 mg/dL 03/02/2023 11:36 PM CDT [facility] GFR Estimate 40(L) >60 mL/min/1.7 3m2 03/02/2023 11:36 PM CDT [facility] Comment:eGFR calculated usin g 2020 CKD-EPI equation. Blood BLOOD SPECIMEN / Unknown Venipuncture / Unknown 03/02/2023 11:04 PM CDT 03/02/2023 11:16 PM CDT Ye Rodriguez MD LAB - BLOOD ORDER [facility] [address] [facility] (1st floor, no room number) [place] [address], [facility] [phone] from Last 3 Months or Most Recently Relevant to Health Maintenance Care Teams Floor Grinder Relationship Specialty Start Date End Date No Ref-Primary, Physician PCP - General 11/21/21
--- OUTSIDE RECORDS SUMMARY | 2024-07-08 18:19 | XMS_ITS | Clinical Summary ---
Author Organization [facility] Address [place], [place] [address] Care Team Providers Care Pond Sawyer Name Role Phone Marycruz Avilez MD Primary Care Provider [phone] Allergies No known active allergies Medications Medication [...] nitroglycerin (NITROSTAT) 0.4 mg sublingual tabletIndications:CAD in false pass artery Place 1 Tablet (0.4 mg) under [...] mg) by mouth once daily. 03/20/2024 Active amoxicillin 500 mg capsuleIndications:S/ P mitral valve repair Take 4 tablets (2 gm) one hour prior to dental cleaning. 4 Capsule 1 06/17/2024 Active Active Problems Problem Noted Date Diagnosed Date Tricuspid valve insufficiency 02/08/2022 COVID-19 02/08/2022 CKD (chronic kidney disease) stage 3, GFR 30-59 ml/min 10/13/2021 S/P CABG x 4 10/08/2021 S/P mitral valve repair 10/08/2021 Overview (10/08/2021): [employer] [facility] Rigid Saddle Ring size 34 mm, REF: RSAR-34, SN: [id number], EXP: 08-01-2026 implanted in the mitral annulus by Dr. 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 01/17/2017 Primary insomnia 12/06/2016 Mixed hyperlipidemia 12/06/2016 Hypertension 05/13/2016 Family history of heart disease 05/13/2016 Overview (05/13/2016): Had bilateral carotid US which showed <50% blockage bilaterally 3.30.2015 Fuchs' endothelial dystrophy 05/13/2016 Overview (05/13/2016): Both eyes Mitral valve insufficiency and aortic valve sten osis 03/06/2007 Resolved Problems Problem Noted Date Diagnosed Date Resolved Date Cardiovascular symptoms 08/26 Encounters Date Type Department Care Team Description 07/07/2024 Telephone [facility] [address] [place] [phone] Akanksha Quintana, RN Device Check 07/04/2024 10:50 AM CDT Orders Only [facility] [address] [place] [phone] <No scans attached> 07/04/2024 9:30 AM CDT Office Visit [facility] [address] [place] [phone] Jarett Gibbons MD CV Electrophysiology Est (Dr Hawkins patient /Recent echo completed and it showed concern for a thrombus/vegetation on his RA lead of his pacemaker. Dayana wants him to be seen by EP sooner vs later. //PCP: Marycruz Avilez MD ) 07/04/2024 Travel 06/29/2024 Travel 06/20/2024 1:11 PM CDT - 06/20/2024 11:59 PM CDT Hospital Encounter [facility] [address] [facility] [place] [address] Mitral valve insufficiency and aortic valve stenosis; Fitting or adjustment of cardiac pacemaker 06/20/2024 Telephone [facility] [address] [facility] [address] [place] [phone] Dayana Valera NP Results (Echo) 06/20/2024 Telephone [facility] [address] [phone] Marquita Covington, ABRIL Device Check 06/19/2024 10:10 AM CDT Orders Only [facility] [address] [phone] Lab 06/19/2024 9:58 AM CDT - 06/19/2024 11:59 PM CDT Hospital Encounter [facility] [address] [place] [address] Scott Garcias MD Ober, Jenna S/P mitral valve repair; Mitral valve insufficiency, unspecified etiology 06/19/2024 Travel 06/19/2024 Orders Only [facility] [address] [phone] Scott Garcias MD <No scans attached> 06/19/2024 Orders Only [facility] [address] [phone] Pat uRbin NP Error-please disregard 06/17/2024 Telephone [facility] [address] [phone] Amilcar Hawkins MD Medication Management (Needs amoxicillin for dental cleaning.) 05/01/2024 Telephone [facility] [address] [phone] Scott Garcias MD Questions 04/29/2024 Telephone [facility] [address] [place] [address] Tanesha Ruelas, LILIANA Results 04/26/2024 9:00 AM CDT Ancillary Procedure [facility] [address] [place] [address] 04/26/2024 Travel from Last 3 Months Immunizations Name Administration Dates Next Due COVID-19 vaccine (Pfizer-BioNTech 30mcg/0.3mL) PAWEL Cardenas 11/18/2020,10/28/2020 Pneumococcal conj 13-Valent [...] 7 (1 standard drink = 0.6 oz pure alcohol) 1 glass/day or less, more ocasional Financial Resource Strain Answer Date R ecorded Difficulty of Paying Living Expenses Not on file 09/15/2021 Difficulty of Paying Living Expenses Not on file 09/15/2021 Sex and Gender Information Value Date Recorded Sex Assigned at Not on file Gender Identity Not on file Sexual Orientation Not on file Obstetrics History Last Filed Vital Signs Vital Sign Reading Time Taken Comments Blood Pressure 169/108 07/04/2024 9:19 AM CDT Pulse 65 07/04/2024 9:19 AM CDT Temperature 35.9 ??C (96.7 ??F) 09/11/2023 1:41 PM CS T Respiratory Rate 16 06/19/2024 1:11 PM CDT Oxygen Saturation 97% 07/04/2024 9:19 AM CDT Inhaled Oxygen Concentration - - Weight 77.3 kg (170 lb 6.4 oz) 07/04/2024 9:19 A M CDT Height 170.2 cm (5' 7) 07/04/2024 9:19 AM CDT Body Mass Index 26.69 07/04/2024 9:19 AM CDT Plan of Treatment Upcoming Encounters Date Type Department Care Team (Latest Contact Info) Description 08/15/2024 10:30 AM FIG WASHER Appointment [facility] [address] [place] [address] 09/06/2024 Cardiac Device Check [facility] [phone] Health Maintenance Due Date Last Done Comments Zoster (shingles) series for age 50+ (1 of 2) 1991 Pneumococcal series for age 65+ (2 of 2 - PPSV23 or PCV20) 09/19/2014 07/25/2014 RSV vaccine for adults or (1 - 1-dose 75+ series) 01/29/2016 Depression screening for age 12+ 05/13/2017 05/13/20 16 Medicare Wellness for age 65+ 05/14/2017 05/13/2016 COVID-19 vaccine series ( season) 2024 06/29/2021, 11/18/2020, 10/28/2020 Influenza for age 65+ 05/26/2024 Tetanus booster 03/20/2025 03/20/2015 BMI (ht and wt on same day) for age 18+ 07/04/2025 07/04/2024, 03/20/2024, 07/13/2023, Additional history exists Tdap Completed 03/20/2015 Medical Devices Implanted Type Area Rag Cutting Machine Feeder Device Identifier Shelf Expiration Date Model / Serial / Lot Ring Mitral 34mm Rigid Saddle - [id number] Implanted:Qty: 1 on 10/08/2021 by Sushant Mcgowan MD at [facility] N/A: Mitral Valve [facility] [employer] [facility] 08/01/2026 RSAR-34 / [id number] / Procedures Procedure Name Priority Date/Time Associated Diagnosis Comments BLOOD CULTURE Routine 07/04/2024 10:52 AM CDT Thrombus due to any device, implant or graft, sequela EKG 12 LEAD Routine 07/04/2024 9:10 AM CDT Persistent atrial fibrillation (HC) BLOOD CULTURE Today 06/20/2024 1:34 PM CDT Fitting or adjustment of cardiac pacemaker BLOOD CULTURE Today 06/20/2024 1:27 PM CDT Fitting or adjustment of cardiac pacemaker LIPID PANEL Today 06/20/2024 1:27 PM CDT Mitral valve insufficiency and aortic valve stenosis ECHO ALEXANDRE WO CONTRAST W COLOR W LTD DOPPLER Routine 06/19/2024 1:01 PM CDT S/P mitral valve repair Mitral valve insufficiency, unspecified etiology POTASSIUM Routine 06/19/2024 10:10 AM CDT Persistent atrial fibrillation (HC) Preprocedural examination PROTIME-INR Routine 06/19/2024 10:10 AM CDT Persistent atrial fibrillation (HC) Preprocedural examination ECHO TTE COMPLETE WO CONTRAST Routine 04/26/2024 9:46 AM CDT Mitral valve insufficiency and aortic valve stenosis from Last 3 Months Results * EKG 12 LEAD (07/04/2024 9:10 AM CDT) Interpretation AV dual-paced rhythm with frequent ventricular- paced complexes Abnormal ECG Ventricular Rate 90 BPM Atrial Rate 90 BPM P-R Interval 176 ms QRS Duration 154 ms QT 430 ms QTc 526 ms P Blackwell 80 degrees R Blackwell 18 degrees T Blackwell 75 degrees 07/04/2024 9:10 AM CDT 07/06/2024 8:07 AM CDT Jarett Gibbons MD EKG ORD * BLOOD CULTURE (06/20/2024 1:34 PM CDT) Only the most recent of2 resultswithin the time period is included. [facility] CULTURE No Growth. 06/25/2024 1:54 PM CDT [facility] Blood BLOOD SPECIMEN / Unknown Butterfly / Unknown 06/20/2024 1:34 PM CDT 06/20/2024 1:34 PM CDT Dayana Valera NP MICROBIOLOGY [address] [address] * LIPID PANEL (06/20/2024 1:27 PM CDT) Pathologist [facility] CHOLESTEROL,TOTAL 132 100 - 199 mg/dL 06/20/2024 1:56 PM CDT [facility] Comment: Cholesterol, Total Reference Ranges Desirable <200 mg/dL Borderline 200-239 mg/dL High >=240 mg/dL TRIGLYCERIDES 120 <150 mg/dL 06/20/2024 1:56 PM CDT [facility] HDL CHOLESTEROL 49 >40 mg/dL 1:56 PM CDT [facility] NON-HDL CHOLESTEROL 83 <145 mg/dl 06/20/2024 1:56 PM CDT [facility] CHOL/HDL RATIO 2.69 <4.50 06/20/2024 1:56 PM CDT [facility] LDL CHOLESTEROL 59 <=130 mg/dL 06/20/2024 1:56 PM CDT [facility] VLDL CHOLESTEROL 24 <=30 mg/dL 06/20/20 24 1:56 PM CDT [facility] PROVIDER ORDERED STATUS RANDOM 06/20/2024 1:56 PM CDT [facility] Blood BLOOD SPECIMEN / Unknown Butterfly / Unknown 06/20/2024 1:27 PM CDT 06/20/2024 1:28 PM CDT Tanesha Ruelas NP CHEMISTRY [facility] [address] [place] [address] * ECHO ALEXANDRE WO CONTRAST W COLOR W LTD DOPPLER (06/19/2024 1:01 PM CDT) EJECTION FRACTION 55 - 60% Anatomical Region Laterality Modality Ultrasound 06/19/2024 10:5 1 AM CDT Narrative 06/19/2024 5:27 PM CDT TRANSESOPHAGEAL ECHOCARDIOGRAM TRINIDAD VICTORIA ?Accession#: ?? [id number] : ?1940 84 years Study Date: ?? 06/19/2024 10:51:58 AM Gender: M ? BP: ? 182/102 mmHg Height: 170.00 cm ? BSA: ?1.88 m? ? ? Weight: 77.00 kg ?Tech: ? JMO/CM ?Referring MD: SCOTT GARCIAS Site: ? [facility] Reading Location: ANW OP Patient Location: Outpatient. Procedure: ALEXANDRE, 3D Imaging, Limited Spectral Doppler and Color Doppler. Indication for study: MVR and TR. Cardiac Rhythm: Irregular.Study quality: Good. Final Impressions: 1. Multiple mobile echodensities on RA lead, measuring up 1.8cm, consistent with thrombus or vegetation. 2. The mitral valve is repaired with an annuloplasty ring, mild to moderate mitral regurgitation. 3. Mild-moderate tricuspid regurgitation. 4. Right ventricular cavity size is mildly enlarged, global systolic RV function is normal. 5. Normal left ventricular size, normal global systolic function with an estimated EF of 55 - 60%. 6. The aortic valve is normal, no stenosis and no regurgitation. 7. Surgically ligated left atrial appendage. 8. PFO present. Procedure comments: Indications, goals, risks and alternatives of the procedure were discussed with the patient and informed consent was obtained. The patient received oral Lidocaine to anesthetized the posterior oropharynx, conscious sedation of intravenous Versed and intravenous Fentanyl. See procedural record for anesthesia details. Prior to performance of procedure, time out was called to accurately identify the patient and procedure. The Echo probe was passed without difficulty. ALEXANDRE, 3D Imaging, Limited Spectral Doppler and Color Doppler was performed. The patient developed no apparent complications during the procedure. Estimated Blood Loss: 0 ml Chamber Sizes and Function Normal left ventricular size, normal global systolic function with an estimated EF of 55 - 60%. Left atrial size is not well visualized. The left atrial appendage is surgically ligated. Not well visualized left atrial appendage flow velocities. Right ventricular cavity size is mildly enlarged, global systolic RV function is normal. The right atrium is not well visualized. The pulmonary artery is of normal size and origin. The sinus of Valsalva is normal sized. The ascending aorta is normal sized. Aortic arch is normal sized with no significant plaque visualized. Descending aorta is normal sized with no significant plaque visualized. Valves, RV Pressures and Diastolic Function The aortic valve is normal in structure, no stenosis and no regurgitation. The mitral valve is repaired with an annuloplasty ring, mild to moderate mitral regurgitation. The tricuspid valve is normal in structure. Tricuspid regurgitation is mild- moderate. The pulmonic valve is normal. Trace pulmonary regurgitation. Masses, Effusion, Shunts There is no pericardial effusion. PFO present. Agitated saline injection not done. MEASUREMENTS AND CALCULATIONS 2-D Measurements and LV Function: HR 45 bpm . This study was interpreted by an [facility] accredited facility. ??Final ?? Procedure Note Jesse Green MD - 06/19/2024 TRANSESOPHAGEAL ECHOCARDIOGRAM TRINIDAD VICTORIA : 1940 84 years Study Date: 06/19/2024 10:51:58 AM Gender: M BP: 182/102 mmHg Height: 170.00 cm BSA: 1.88 m? ? ? Weight: 77.00 kg Tech: ROBERTH/KRIS Referring MD: SCOTT GARCIAS Site: [facility] Reading Location: ANW OP Patient Location: Outpatient. Procedure: ALEXANDRE, 3D Imaging, Limited Spectral Doppler and Color Doppler. Indication for study: MVR and TR. Cardiac Rhythm: Irregular.Study quality: Good. Final Impressions: 1. Multiple mobile echodensities on RA lead, measuring up 1.8cm,consistent with thrombus or vegetation. 2. The mitral valve is repaired with an annuloplasty ring, mild tomoderate mitral regurgitation. 3. Mild-moderate tricuspid regurgitation. 4. Right ventricular cavity size is mildly enlarged, global systolic RVfunction is normal. 5. Normal left ventricular size, normal global systolic function with anestimated EF of 55 - 60%. 6. The aortic valve is normal, no stenosis and no regurgitation. 7. Surgically ligated left atrial appendage. 8. PFO present. Procedure comments: Indications, goals, risks and alternatives of theprocedure were discussed with the patient and informed consent wasobtained. The patient received oral Lidocaine to anesthetized theposterior oropharynx, conscious sedation of intravenous Versed andintravenous Fentanyl. See procedural record for anesthesia details. Priorto performance of procedure, time out was called to accurately identifythe patient and procedure. The Echo probe was passed without difficulty.ALEXANDRE, 3D Imaging, Limited Spectral Doppler and Color Doppler was performed.The patient developed no apparent complications during the procedure. Estimated Blood Loss: 0 ml Chamber Sizes and Function Normal left ventricular size, normal global systolic function with anestimated EF of 55 - 60%. Left atrial size is not well visualized. Theleft atrial appendage is surgically ligated. Not well visualized leftatrial appendage flow velocities. Right ventricular cavity size is mildlyenlarged, global systolic RV function is normal. The right atrium is notwell visualized. The pulmonary artery is of normal size and origin. Thesinus of Valsalva is normal sized. The ascending aorta is normal sized.Aortic arch is normal sized with no significant plaque visualized.Descending aorta is normal sized with no significant plaque visualized. Valves, RV Pressures and Diastolic Function The aortic valve is normal in structure, no stenosis and no regurgitation.The mitral valve is repaired with an annuloplasty ring, mild to moderatemitral regurgitation. The tricuspid valve is normal in structure.Tricuspid regurgitation is mild- moderate. The pulmonic valve is normal.Trace pulmonary regurgitation. Masses, Effusion, Shunts There is no pericardial effusion. PFO present. Agitated saline injectionnot done. MEASUREMENTS AND CALCULATIONS 2-D Measurements and LV Function: HR 45 bpm . This study was interpreted by an [facility] accredited facility. Final Scott Garcias MD ECHO ORD * POTASSIUM (06/19/2024 10:10 AM CDT) POTASSIUM 4.7 3.5 - 5.1 mmol/L 06/19/2024 10:38 AM CDT [facility] Blood BLOOD SPECIMEN / Unknown Venipuncture / Unknown 06/19/2024 10:10 AM CDT 06/19/2024 10:10 AM CDT Scott Garcias MD CHEMISTRY [facility] [address] [place] [address], * (ABNORMAL) PROTIME-INR (06/19/2024 10:10 AM CDT) INR 1.7(H) <1.3 06/19/2024 10:43 AM CDT [facility] PROTIME 18.8(H) 10.3 - 12.3 sec 06/19/2024 10:43 AM CDT [facility] Blood BLOOD SPECIMEN / Unknown Venipuncture / Unknown 06/19/2024 10:10 AM CDT 06/19/2024 10:10 AM CDT Narrative [facility] - 06/19/2024 10:43 AM CDT ?Therapeutic Range 2.0-3.0 for most anticoagulated patients 2.5-3.5 or 4.0 for high risk patients The INR is only used for patients on stable oral anticoagulant therapy. It makes no significant contribution to the diagnosis or treatment of patients whose Protime is prolonged for other reasons. INR results are increased when heparin levels exceed 1.0 U/mL, which corresponds to an aPTT >125 seconds if the patient is on UFH. Scott Garcias MD HEMATOLOGY [facility] [address] [place] [address], * ECHO TTE COMPLETE WO CONTRAST (04/26/2024 9:46 AM CDT) [facility] AORTIC VALVE MEAN PG 2 mmHg PEAK TR VELOCITY 3.0 m/s LVEDD 4.0 cm MITRAL VALVE MR ERO 26 mm2 EJECTION FRACTION 55 - 60% Anatomical Region Laterality Modality Ultrasound 04/26/2024 9:03 AM CDT Narrative 04/26/2024 10:34 AM CDT ECHOCARDIOGRAM TRINIDAD VICTORIA ?Accession#: ?? [id number] : ?1940 84 years Study Date: ?? 04/26/2024 9:03:45 AM Gender: M ? BP: ? 136/86 mmHg Height: 170.18 cm ? BSA: ?1.89 m? ? ? Weight: 77.57 kg ?Tech: ? JCP ?Referring MD: TANESHA RUELAS Site: ? [facility] Reading Location: MOBILE - OP Patient Location: [...] . This study was interpreted by an [facility] accredited facility. ??Final ?? Procedure Note Ashwini Winslow, [facility] - 04/26/2024 ECHOCARDIOGRAM TRINIDAD VICTORIA : 1940 84 years Study Date: 04/26/2024 9:03:45 AM Gender: M BP: 136/86 mmHg Height: 170.18 cm BSA: 1.89 m? ? ? Weight: 77.57 kg Tech: ALEXIS Referring MD: TANESHA RUELAS Site: [facility] Reading Location: MOBILE - OP Patient Location: [...] ERO 0.26 cm? ? ? MV P 1/ 54 msec MR Vol. 49 ml MV Mean G 3 mmHg MR TVI 1.88 m Tricuspid Valve and estimated PA pressures: TR Vmax 3.0 m/s TAPSE 1.4 cm TR maxG 37 mmHg . This study was interpreted by an [facility] accredited facility. Final Tanesha Ruelas MINERAL RESOURCES INSPECTOR ECHO ORD from Last 3 Months Advance Directives * Full Code (Latest Code Status on File) Date Activated Date Inactivated Comments 06/19/2024 11:27 AM 06/20/2024 2:26 AM Question Answer Comments Code Status Discussion: Reviewed Preferences * Full Code Date Activated Date Inactivated Comments 09/11/2023 1:28 [...] to Assess Preferences, Provider to review later Care Teams Pond Sawyer Relationship Specialty Start Date End Date Marycruz Avilez MD [address] [place] [address] PCP - General Internal Medicine 11/18/21
--- OUTSIDE RECORDS SUMMARY | 2024-07-08 18:19 | XMS_ITS | Referral Summary ---
Author Organization [facility] Address [address] [place] [address] Care Team Providers Care Wire Stitcher Operator Name Role Phone No Ref-Primary, Physician Primary [...] - Plan of Treatment Not on file Procedures Procedure Name Priority Date/Time Associated Diagnosis Comments BASIC METABOLIC PANEL STAT 03/02/2023 11:04 PM CDT from Last 3 Months or Most Recently Relevant to Health Maintenance Results * (ABNORMAL) Basic metabolic panel (BMP) (03/02/2023 11:04 PM CDT) Sodium 137 136 - 145 mmol/L 03/02/2023 11:36 PM CDT [facility] Potassium 4.2 3.4 - 5.3 mmol/L 03/02/2023 11:36 PM CDT LABORATORY Chloride 99 98 - 107 mmol/L [...] PM CDT [facility] Comment:eGFR calculated usin 2020 CKD-EPI equation. Blood BLOOD SPECIMEN / Unknown Venipuncture / Unknown 03/02/2023 11:04 PM CDT 03/02/2023 11:16 PM CDT Ye Rodriguez MD LAB - BLOOD ORDER CHAPIN [facility] [address] Lab (1st floor, no room number) [place] [address], [facility] [phone] from Last 3 Months or Most Recently Relevant to Health Maintenance Care Teams Wire Stitcher Operator Relationship Specialty Start Date End Date No Ref-Primary, Physician PCP - General 11/21/21
[2024-07-08 18:21] LABS: PCR FLU A Negative PCR FLU A (Negative); PCR FLU B Negative PCR FLU B (Negative); PCR RSV Negative PCR RSV (Negative); SARS PCR* POSITIVE SARS-CoV-2 (Negative)
[2024-07-08 18:22] LABS: Slide Review Reflex No
[2024-07-08 18:24] LABS: Troponin, Point-of-Care* 0.01 ng/ml (0.01-0.04)
[2024-07-08 18:38] LABS: Albumin* 3.8 g/dL (3.3-5.0); Chloride* 99 mmol/L (96-114)
[2024-07-08 18:39] LABS: Potassium* 3.7 mmol/L (3.6-5.1); Sodium* 133 mmol/L (135-149)
[2024-07-08 18:40] LABS: D Dimer Quantitative* 0.39 ug/ml (0.00-0.50)
[2024-07-08 18:41] LABS: Creatinine* 1.4 mg/dL (0.5-1.5); Est. Creatinine Clearance* 37.38; Estimated Glomerular Filt Rate 50 ml/min
[2024-07-08 18:42] LABS: Alanine Aminotransferase* 20 U/L (4-50); Alkaline Phosphatase* 60 U/L (40-150); Anion Gap 6 mEq/L (7-15); Aspartate Amino Transferase* 18 U/L (12-35); Bilirubin Direct* 0.1 mg/dL (0.0-0.5); Bilirubin Total* 0.7 mg/dL (0.1-1.5); Blood Urea Nitrogen* 21 mg/dL (7-30); Calcium* 8.7 mg/dL (8.4-10.6); Carbon Dioxide* 28 mmol/L (20-32); Glucose* 106 mg/dL (60-115); Magnesium* 2.2 mg/dL (1.5-2.6); Total Protein* 6.4 g/dL (6.0-8.3)
[2024-07-08 18:54] LABS: C Reactive Protein* < 0.5 mg/dL (0.5-1.0); NT Pro B Type NatriureticPept* 2260 pg/mL
[2024-07-08 19:12] LABS: Troponin I* < 0.01 ng/mL (0.01-0.04)
--- NOTE | 2024-07-08 19:33 | CRLHL7_ITS ---
For Patients: As a result of the Century Cures Act, medical imaging exams and procedure reports are released immediately into your electronic medical record. You may view this report before your referring provider. If you have questions, please contact your health care provider. Indication: COVID. Technique: Chest 1 view. Comparison: Chest radiograph dated 02/03/2022. Findings/Impression: Cardiovascular and mediastinum: Heart size and vasculature are normal in caliber and appearance. Left chest pacemaker. Redemonstrated prosthetic aortic valve annuli. Lungs and pleural space: Lungs are clear. No sign of infiltrate or mass. No sign of pleural effusion. No pneumothorax. Bones and soft tissues: No acute findings. Sternotomy wires. Dictated by Myke Herring MD @ 07/08/2024 8:33:38 PM (Electronically Signed)
--- NOTE | 2024-07-08 20:10 | ED_ITS ---
HPI - General Adult General Chief complaint: Shortness of Breath/Dyspnea Stated complaint: possible blood clot - SOB Time Seen by Provider: 07/08/24 17:54 Source: patient Mode of arrival: ambulatory Limitations: no limitations History of Present Illness HPI narrative: Patient is an 84-year-old male presenting today with chest pain. Patient states that his morning he noticed that if he takes a deep breath he has some left- sided chest discomfort. He denies feeling short of breath. He does feel some achiness throughout his whole body. He denies any fevers or chills. No nausea or vomiting. He denies any diaphoresis, feeling lightheaded or dizzy. His was diagnosed with COVID-19 today. Patient had a pacemaker placed a few weeks ago and a ALEXANDRE showed he had a blood clot on a wire. Patient is quite concerned that he now has a blood clot in his lungs given his symptoms today. He does take Coumadin and he had an INR checked today where he was therapeutic at 2.5. He denies chest pain when he is not deep breathing. He had no difficulty sleeping last night. No changes in his appetite. He denies any skin rashes. Related Data Home Medications ?Medication ?Instructions ?Recorded ?Confirmed aspirin 81 mg chewable tablet 81 mg PO QDAY 05/11/22 05/24/24 sildenafil 100 mg tablet 100 mg PO QDAY PRN 05/11/22 05/24/24 clonidine HCl 0.1 mg tablet 0.1 mg PO DAILY PRN 09/19/23 02/13/24 Previous Rx's ?Medication ?Instructions ?Recorded ezetimibe 10 mg tablet 10 mg PO QDAY #90 tabs 02/13/24 hydrochlorothiazide 12.5 mg capsule 12.5 mg PO QDAY #90 caps 02/13/24 nitroglycerin 0.4 mg sublingual 0.4 mg sublingual Q5M PRN chest 02/13/24 tablet pain #30 tabs simvastatin 10 mg tablet 10 mg PO .QOD #45 tabs 02/13/24 warfarin 1 mg tablet 2 mg PO DAILY #180 tabs 05/06/24 metoprolol succinate 25 mg 25 mg PO QDAY #90 tabs 05/07/24 tablet,extended release 24 hr amoxicillin 875 mg tablet 875 mg PO BID #20 tabs 05/24/24 chlorhexidine gluconate 0.12 % 15 ml buccal BID #120 mL 06/18/24 mouthwash nirmatrelvir 300 mg (150 mg See Rx Instructions PO .COMPLEX 07/08/24 x2)-ritonavir 100 mg tablet,dose #30 ea pack (Paxlovid) Allergies Allergy/AdvReac Type Severity Reaction Status Date / Time atorvastatin Allergy Mild Muscle Pain Verified 05/24/24 09:37 rosuvastatin Allergy Mild myalgias Verified 05/24/24 09:37 Review of Systems Status of ROS: Reports: 10 or more systems reviewed and unremarkable except as noted in History and below [facility] Medical History History of cardioversion ?Z92.89 - Personal history of other medical treatment (ICD-10) Surgical History History of uvulopalatopharyngoplasty ?Z98.890 - Other specified postprocedural states (ICD-10) History of tonsillectomy ?Z90.89 - Acquired absence of other organs (ICD-10) History of mitral valve repair ?Z98.890 - Other specified postprocedural states (ICD-10) History of malignant neoplasm of skin ?Z85.828 - Personal history of other malignant neoplasm of skin (ICD-10) History of coronary artery bypass surgery ?Z95.1 - Presence of aortocoronary bypass graft (ICD-10) History of cataract removal with insertion of prosthetic lens ?Z98.49 - Cataract extraction status, unspecified eye (ICD-10) ?Z96.1 - Presence of intraocular lens (ICD-10) Family History Other Heart disease Prostate cancer Stroke Social History Narrative: Former smoker Occasional alcohol consumption Does not use illicit drugs What is your current living situation?: I presently have a place to live Problems where you live: declined to answer In the past 12 months, utilities in danger of being shut off: no In past 12 months, lack of transportation kept you from medical appts, meetings, work, or getting things needed for daily living: no In the past 12 mos, have been you worried that your food would run out before you had money to buy more?: never true In the past 12 mos, the food you bought just didn't last and you didn't have money to buy more?: never true Smoking Status: Never smoker Do you use any of these nicotine containing products: None Second hand tobacco smoke exposure: No How often do you have a drink containing alcohol: 2-3 times a week How many standard drinks containing alcohol do you have on a typical day: 1 or 2 How often do you have six or more drinks on one occasion: Never AUDIT-C Alcohol total score: 3 Non-prescribed substance use: denies use How often does anyone, including family, friends and others, physically hurt you : never How often does anyone, including family, friends and others, insult or talk down to you: never How often does anyone, including family, friends and others, threaten you with harm: never How often does anyone, including family, friends and others, scream or curse at you: never Little interest or pleasure in doing things: not at all Feeling down, depressed, or hopeless: not at all service: No Exam Narrative: Exam Narrative: Well-nourished well-developed patient in no acute distress. Alert and oriented. Answers questions appropriately. Mood and affect are appropriate. Thoughts are goal oriented and rational. No tangential or magical thinking noted. Patient speaks in full sentences without needing to catch his breath. HEENT: Normocephalic atraumatic. Pupils are equally round reactive to light. Extraocular muscles are intact. Conjunctivae are moist without any icterus noted. Moist mucous membranes. Neck is soft. Cardiovascular: Heart is regular rate and irregular rhythm with a murmur present Lungs: Clear to auscultation bilaterally no wheezes rhonchi or rales are appreciated. Patient takes deep breaths without significant discomfort. Abdomen: Soft and nontender nondistended with normal bowel sounds. Extremities: Bilateral lower extremities are without edema. Skin: Well perfused without any obvious rashes. Const: Vital Signs, click to edit/add: Vital Signs - 24 hr 07/08/24 17:14 Temperature 97.9 F Pulse Rate [Pulse Oximeter] 80 Respiratory Rate 18 Blood Pressure [Ri ght Upper Arm] 144/91 H Pulse Oximetry 97 Oxygen Delivery Me thod Room Air Course Course ED Course: EKG, read by me, shows AFib versus atrial flutter with PVCs, pulse is 75. CBC is unremarkable. D-dimers normal at 0.39. Chemistries are unremarkable, sodium slightly low at 133. Normal LFTs. Normal troponin. Online normal CRP. BNP is elevated at 2260. Triple swab is positive for COVID-19. Chest x-ray, read by me, does not show any acute pathology. Vital Signs Vital signs: Initial Vital Signs Temperature 97.9 F 07/08/24 17:14 Temperature Source Temporal Artery Scan 07/08/24 17:14 Pulse Rate 80 07/08/24 17:14 Respiratory Rate 18 07/08/24 17:14 Blood Pressure 144/91 H 07/08/24 17:14 Blood Pressure Mean 108 H 07/08/24 17:14 Blood Pressure Position Sitting 07/08/24 17:14 Pulse Oximetry 97 07/08/24 17:14 Oxygen Delivery Method Room Air 07/08/24 17:14 Vital Signs Temperature 97.9 F 07/08/24 17:14 Pulse Rate 80 07/08/24 17:14 Respiratory Rate 18 07/08/24 17:14 Blood Pressure 144/91 H 07/08/24 17:14 Pulse Oximetry 97 07/08/24 17:14 Oxygen Delivery Method Room Air 07/08/24 17:14 Temperature 97.9 F 07/08/24 17:14 Pulse Rate 80 07/08/24 17:14 Respiratory Rate 18 07/08/24 17:14 Blood Pressure 144/91 H 07/08/24 17:14 Pulse Oximetry 97 07/08/24 17:14 Oxygen Delivery Method Room Air 07/08/24 17:14 Medical Decision Making Lab Data Labs: Lab Results 07/08/24 07/08/24 07/08/24 Range/Units 17:29 18:00 18:07 WBC 6.77 (4.50-11.00) K/uL RBC 5.27 (4.30-5.90) m/uL Hgb 16.1 (13.5-17.5) gm/dL Hct 48.8 (37.0-53.0) % MCV 93 (80-100) fL MCH 31 (26-34) pg MCHC 33 (32-36) gm/dL RDW Coeff of Ruel 12.8 (11.5-15.5) % Plt Count 224 (140-440) K/uL Neut % (Auto) 47.2 (42.0-72.0) % Lymph % (Auto) 37.2 (20-44) % Benton % (Auto) 12.7 H (0.0-11.0) % Eos % (Auto) 2.2 (0.0-7.0) % Baso % (Auto) 0.6 (0.0-3.0) % Neut # (Auto) 3.19 (1.7-7.0) K/uL Lymph # (Auto) 2.52 (0.90-2.90) K/uL Benton # (Auto) 0.90 (0.00-0.90) K/UL Eos # (Auto) 0.15 (0.00-0.50) K/uL Baso # (Auto) 0.04 (0.00-0.30) K/uL Abs Immat Gran (auto) 0.01 (0.00-0.30) K/uL Imm/Tot Granulo (auto) 0.1 % D-Dimer Quant (PE/DVT) 0.39 (0.00-0.50) ug/ml Sodium 133 L (135-149) mmol/L Potassium 3.7 (3.6-5.1) mmol/L Chloride 99 (96-114) mmol/L Carbon Dioxide 28 (20-32) mmol/L Anion Gap 6 L (7-15) mEq/L BUN 21 (7-30) mg/dL Creatinine 1.4 (0.5-1.5) mg/dL Estimated Creat Clear 37.38 Estimated GFR 50 ml/min Glucose 106 (60-115) mg/dL Calcium 8.7 (8.4-10.6) mg/dL Magnesium 2.2 (1.5-2.6) mg/dL Total Bilirubin 0.7 (0.1-1.5) mg/dL Direct Bilirubin 0.1 (0.0-0.5) mg/dL AST 18 (12-35) U/L ALT 20 (4-50) U/L Alkaline Phosphatase 60 (40-150) U/L Troponin I < 0.01 L (0.01-0.04) ng/mL C-Reactive Protein < 0.5 L (0.5-1.0) mg/dL NT-Pro-B Natriuret Pep 2260 pg/mL Total Protein 6.4 (6.0-8.3) g/dL Albumin 3.8 (3.3-5.0) g/dL SARS-CoV-2 (PCR) POSITIVE SARS-CoV-2 A (Negative) Influenza Type A (PCR) Negative PCR FLU A (Negative) Influenza Type B (PCR) Negative PCR FLU B (Negative) RSV (PCR) Negative PCR RSV (Negative) POC Troponin I 0.01 (0.01-0.04) ng/ml Imaging Data Chest x-ray: Attestation: I have reviewed the pertinent imaging results. Radiologist's impression: Chest 1 view. Comparison: Chest radiograph dated 02/03/2022. Findings/Impression: Cardiovascular and mediastinum: Heart size and vasculature are normal in caliber and appearance. Left chest pacemaker. Redemonstrated prosthetic aortic valve annuli. Lungs and pleural space: Lungs are clear. No sign of infiltrate or mass. No sign of pleural effusion. No pneumothorax. Bones and soft tissues: No acute findings. Sternotomy wires. ECG Data Attestation: I personally reviewed and interpreted this ECG as follows: Discharge Plan Discharge Clinical Impression: COVID-19 Patient Disposition: Home, Self-Care Condition: Stable Additional Instructions: You have been prescribed Paxlovid, which is the medication used to treat COVID- 19. If you start taking this medication, you should stop taking your simvastatin and restart it 3 days after the last dose of Paxlovid. You should also not use Sildefanil while you are taking Paxlovid. Lastly, I would follow-up with your primary care provider in check your INR on day 2 and 5 of Paxlovid therapy. Wear a mask if you go out in public. Okay to use Tylenol as needed/as directed for fevers and body aches. Make sure you are eating nutritious meals and staying well hydrated. You can stop treatment early if you develop diarrhea, difficulty swallowing, changes in your appetite or taste causing your food to not taste good. Return to the ER for difficulty breathing, significant weakness, or inability to keep down any food. Prescriptions: New Paxlovid 300 mg (150 mg x 2)-100 mg tablets,dose pack See Rx Instructions .ROUTE .COMPLEX Qty: 30 0RF Rx Instructions: take TWO 150 mg tablets of nirmatrelvir with ONE 100 mg tablet of ritonavir twice daily for 5 days No Action amoxicillin 875 mg tablet 875 mg PO BID Qty: 20 0RF clonidine HCl 0.1 mg tablet 0.1 mg PO DAILY PRN nitroglycerin 0.4 mg tablet, sublingual 0.4 mg sublingual Q5M PRN (Reason: chest pain) Qty: 30 5RF Rx Instructions: do not exceed 3 doses per episode ezetimibe 10 mg tablet 10 mg PO QDAY Qty: 90 3RF hydrochlorothiazide 12.5 mg capsule 12.5 mg PO QDAY Qty: 90 3RF simvastatin 10 mg tablet 10 mg PO .QOD Qty: 45 3RF Rx Instructions: Every other day sildenafil 100 mg tablet 100 mg PO QDAY PRN Rx Instructions: administer 30 minutes to 4 hours before activity aspirin 81 mg tablet,chewable 81 mg PO QDAY warfarin 1 mg tablet 2 mg PO DAILY Qty: 180 0RF Protocol: Dose Management Condition: Monday Dose/Route: 2 mg Instruction: 2 x 1 mg tablets Condition: Monday Dose/Route: 2 mg Instruction: 2 x 1 mg tablets Condition: Monday Dose/Route: 2 mg Instruction: 2 x 1 mg tablets Condition: Monday Dose/Route: 2 mg Instruction: 2 x 1 mg tablets Condition: Dose/Route: 4 mg Instruction: 4 x 1 mg tablets Condition: Monday Dose/Route: 2 mg Instruction: 2 x 1 mg tablets Condition: Monday Dose/Route: 2 mg Instruction: 2 x 1 mg tablets Protocol Text: Adjustment Start Date: Monday07/08/24 INR Value: 2.5 INR Date: 07/08/24 Recheck Date: 07/22/24 Rx Instructions: 2mg po daily metoprolol succinate 25 mg tablet extended release 24 hr 25 mg PO QDAY Qty: 90 3RF chlorhexidine gluconate 0.12 % mouthwash 15 ml buccal BID Qty: 120 0RF Follow Up/Referrals: Marycruz Avilez MD [Primary Care Provider] - Stand Alone Forms: [facility] Info Instructions
== END 2024-07-08 20:07 | disposition home or self-care (01) ==
PROVIDERS: Emergency Provider Family Medicine; PCP Internal Medicine
DX: U07.1 COVID-19 (principal)
CPT/HCPCS: 36415; 71045; 80048; 80076; 83735; 83880; 84484; 85025; 85379; 86140; 87631; 99284

== ENCOUNTER 2025-02-21 09:18 | Outpatient (CLI) | payer MEDICARE, BC, SELFPAY | END 2025-02-21 09:19 | disposition home or self-care (01) | LOC: NFLDREF 02-26 01:10 | PROVIDERS: PCP Internal Medicine; Referring Provider Internal Medicine; Visit Provider Internal Medicine | DX: I48.0 Paroxysmal atrial fibrillation (principal); R73.03 Prediabetes; I10 Essential (primary) hypertension; E78.5 Hyperlipidemia, unspecified; D75.1 Secondary polycythemia | CPT/HCPCS: 80048; 80061 ==

== ENCOUNTER 2025-04-16 10:26 | Outpatient (CLI) | payer MEDICARE, BC, SELFPAY | END 2025-04-16 10:27 | disposition home or self-care (01) | LOC: NFLDREF 04-17 03:08 | PROVIDERS: PCP Internal Medicine; Referring Provider Internal Medicine; Visit Provider Internal Medicine | DX: E78.5 Hyperlipidemia, unspecified (principal) | CPT/HCPCS: 80061 ==